=== PATIENT | male | born 1990 | race Caucasian/White ===

== ENCOUNTER 2022-09-26 08:47 | Emergency (ER) | payer SELFPAY ==
[2022-09-26 08:50] VITALS: BP 133/90; PULSE 69; RESP 16; TEMP 37.2; O2SAT 98; BMI 20.7
--- NOTE | 2022-09-26 09:01 | EXP.UTC ---
Discharge Plan Disposition Patient Disposition: Home, Self-Care Condition: Good Prescriptions Prescriptions: New amoxicillin-pot clavulanate 875-125 mg Tablet 1 tab PO Q12H Qty: 20 0RF ibuprofen [IBU] 800 mg tablet 800 mg PO TIDP PRN (Reason: Moderate Pain) Qty: 20 0RF Referrals Follow up/Referrals: Provider,Referral, MD [Primary Care Provider] - See instructions Activity Restrictions/Add. Instructions Additional Instructions/Restrictions: Make sure to follow up with Dentist Return if needed Straight to ER if any life threatening symptoms Return if needed Take medication as prescribed Clinical Impressions Clinical Impression: Abscess, dental Instructions Patient Instructions: DI for Tooth Abscess, DI for Tooth Decay, Amoxicillin and Clavulanic Acid Discharge ED Provider: Sonia Phelps [facility] General Stated complaint: Possible abcess tooth Time Seen by Provider: 09/26/22 09:01 History of Present Illness Provider Complaint: Patient states that he has several broken decaying teeth and has appointment in October to have them all removed States that last night he woke up with pain and swelling in his right upper gumline States that this morning the swelling was getting worse so he came in to get it checked Related Data Previous Rx's Medication Instructions Recorded amoxicillin 875 mg-potassium 1 tab PO Q12H #20 tabs 09/26/22 clavulanate 125 mg tablet ibuprofen 800 mg tablet (IBU) 800 mg PO TIDP PRN Moderate Pain 09/26/22 #20 tabs Allergies Allergy/AdvReac Type Severity Reaction Status Date / Time No Known Allergies Allergy Verified 09/26/22 09:08 [facility] Disclaimer: The information contained in this section may have been updated after the patient was seen, as this information can be updated by other users. Medical History (Updated 09/26/22 @ 09:08 by Sonia Phelps, [employer]) No significant past medical history Social History (Updated 09/26/22 @ 09:07 by Olamide Montesinos RN) Smoking Status: Current every day smoker alcohol intake: never current occupational status: other Travel in the last 8 weeks: None ROS Obtained: Yes All systems reviewed & no additional complaints except as documented and Yes Systems reviewed as appropriate & no additional complaints except as documented Constitutional Constitutional: Reports system reviewed and no additional complaints, except as documented and Reports as per HPI ENT Ears, Nose, Mouth, and Throat: Reports system reviewed and no additional complaints, except as documented, Reports as per HPI and Reports dental pain Cardiovascular Cardiovascular: Reports system reviewed and no additional complaints, except as documented and Reports as per HPI Respiratory Respiratory: Reports system reviewed and no additional complaints, except as documented and Reports as per HPI Gastrointestinal Gastrointestingal: Reports system reviewed and no additional complaints, except as documented and as per HPI Physical Exam General General appearance: alert and in no apparent distress Expanded ENT Exam Teeth exam: Present gingival swelling and other (several broken and decaying teeth with swelling in the gumline) Respiratory Respiratory exam: Present normal lung sounds bilaterally; Absent respiratory distress or wheezes Cardiovascular Cardiovascular exam: Present regular rate, normal rhythm and normal heart sounds Neurological Exam Neurological exam: Present alert, oriented X3 and normal gait Medical Decision Making Karlos Inquiry Pt receiving controlled substance: No Karlos was queried for this patient: No
[2022-09-26 09:13] VITALS: BP 133/90; PULSE 69; RESP 16; TEMP 37.2; O2SAT 98
== END 2022-09-26 09:15 | disposition home or self-care (01) ==
PROVIDERS: Emergency Provider Nurse Practitioner
DX: K04.7 Periapical abscess without sinus (principal)
CPT/HCPCS: 99212; 99213; G0463

== ENCOUNTER 2022-10-23 11:24 | Emergency (ER) | payer SELFPAY ==
[2022-10-23 11:25] VITALS: BP 128/90; PULSE 72; RESP 17; TEMP 36.8; O2SAT 100; BMI 23.6
--- NOTE | 2022-10-23 11:44 | HMH.EDGENADL ---
Discharge Plan Disposition Patient Disposition: Home, Self-Care Condition: Good Prescriptions Prescriptions: New amoxicillin-pot clavulanate 875-125 mg tablet 1 tab PO BID 10 Days Qty: 20 0RF No Action amoxicillin-pot clavulanate 875-125 mg Tablet 1 tab PO Q12H Qty: 20 0RF ibuprofen [IBU] 800 mg tablet 800 mg PO TIDP PRN (Reason: Moderate Pain) Qty: 20 0RF Referrals Follow up/Referrals: Provider,Referral, MD [Primary Care Provider] - See instructions Activity Restrictions/Add. Instructions Additional Instructions/Restrictions: Take antibiotic twice daily for 10 days. Follow-up with dentistry. Take Tylenol 1000 mg every 6 hours (4 times daily) and ibuprofen 400 mg every 6 hours (4 times daily) as needed with food and water to prevent GI upset and kidney damage. Clinical Impressions Clinical Impression: Abscess, dental Discharge ED Provider: Lewis Jose General Adult HPI General Chief complaint: Dental/Oral Stated complaint: right side jaw/facial pain Time Seen by Provider: 10/23/22 11:35 Mode of Arrival: Ambulatory Source of Information: Patient Limitations: No Limitations Description of Symptoms (Recalled from ER Triage Doc. by RN): PT C/O RIGHT LOWER JAW PAIN FROM A BROKEN TOOTH History of Present Illness HPI narrative: This is a 31-year-old male with history of numerous dental caries presenting with facial pain. Patient states that he began having facial pain about 2 or 3 days ago. Began having swelling on the right side of his face today and pain in his jaw. It radiates up toward his ear and his moderate in intensity. Made worse by chewing, made better by resting. Patient denies fevers, chills, throat swelling, pain with range of motion of neck, ear discharge, vomiting, fevers, chills, voice changes, or any other concerns. Related Data Previous Rx's Medication Instructions Recorded amoxicillin 875 mg-potassium 1 tab PO Q12H #20 tabs 09/26/22 clavulanate 125 mg tablet ibuprofen 800 mg tablet (IBU) 800 mg PO TIDP PRN Moderate Pain 09/26/22 #20 tabs amoxicillin 875 mg-potassium 1 tab PO BID 10 days #20 tabs 10/23/22 clavulanate 125 mg tablet Allergies Allergy/AdvReac Type Severity Reaction Status Date / Time No Known Allergies Allergy Verified 09/26/22 09:08 PFSH PFSH Disclaimer: The information contained in this section may have been updated after the patient was seen, as this information can be updated by other users. Medical History (Updated 10/23/22 @ 11:44 by Lewis Jose MD) No significant past medical history Family History (Updated 10/23/22 @ 11:35 by Mayra Khan RN) Other No significant family history Social History (Updated 10/23/22 @ 11:35 by Mayra Khan RN) Smoking Status: Current every day smoker alcohol intake: never current occupational status: other Travel in the last 8 weeks: None ROS Obtained: Yes All systems reviewed & no additional complaints except as documented Physical Exam General General appearance: alert and in no apparent distress Head Head exam: atraumatic, normocephalic and normal inspection Eye Eye exam: Present normal appearance, PERRL and EOMI ENT ENT exam: Present normal oropharynx, mucous membranes moist, TM's normal bilaterally, normal external ear exam and other (Numerous dental caries and fractured teeth. No evidence of anything amenable to drainage. No evidence of tonsillitis, exudate, pharyngeal erythema, uvular deviation, palatal swelling, dental abscess, angioedema, or other abnormal colin pharyngeal findings) Neck Neck exam: Present normal inspection, full ROM and trachea midline; Absent meningismus or lymphadenopathy Chest Chest inspection: Present normal inspection and symmetric chest wall rise; Absent tenderness Respiratory Respiratory exam: Present normal lung sounds bilaterally; Absent respiratory distress Cardiovascular Cardiovascular exam: Present regular rate and normal rhythm
[2022-10-23 11:56] VITALS: BP 128/90; PULSE 72; RESP 17; TEMP 36.8; O2SAT 100
== END 2022-10-23 11:57 | disposition home or self-care (01) ==
PROVIDERS: Emergency Provider Emergency Medicine
DX: K04.7 Periapical abscess without sinus (principal); F17.210 Nicotine dependence, cigarettes, uncomplicated
CPT/HCPCS: 96372; 99284

== ENCOUNTER 2023-01-11 18:15 | Emergency (ER) | payer SELFPAY ==
[2023-01-11 18:16] VITALS: BP 120/82; PULSE 97; RESP 18; TEMP 37.4; O2SAT 98; BMI 24.0
--- NOTE | 2023-01-11 18:42 | HMH.EDGENADL ---
Discharge Plan Disposition Patient Disposition: Home, Self-Care Prescriptions Prescriptions: New cephalexin 500 mg capsule 500 mg PO QID 10 Days Qty: 40 0RF No Action amoxicillin-pot clavulanate 875-125 mg Tablet 1 tab PO Q12H Qty: 20 0RF ibuprofen [IBU] 800 mg tablet 800 mg PO TIDP PRN (Reason: Moderate Pain) Qty: 20 0RF amoxicillin-pot clavulanate 875-125 mg tablet 1 tab PO BID 10 Days Qty: 20 0RF Clinical Impressions Clinical Impression: Insect bite of ankle with local reaction, Cellulitis and abscess of foot Discharge ED Provider: Ramirez Singer General Adult HPI General Stated complaint: Reaction to a insect sting Time Seen by Provider: 01/11/23 18:43 History of Present Illness HPI narrative: Patient is a 32-year-old male presenting with localized pain erythema and tenderness and itching after a unknown bug bite last night. He heard a buzzing slapped his foot about 12 hours later started having redness pain and had some itching took some Benadryl without any significant improvement. Related Data Previous Rx's Medication Instructions Recorded amoxicillin 875 mg-potassium 1 tab PO Q12H #20 tabs 09/26/22 clavulanate 125 mg tablet ibuprofen 800 mg tablet (IBU) 800 mg PO TIDP PRN Moderate Pain 09/26/22 #20 tabs amoxicillin 875 mg-potassium 1 tab PO BID 10 days #20 tabs 10/23/22 clavulanate 125 mg tablet cephalexin 500 mg capsule 500 mg PO QID 10 days #40 caps 01/11/23 Allergies Allergy/AdvReac Type Severity Reaction Status Date / Time No Known Allergies Allergy Verified 09/26/22 09:08 [facility] Disclaimer: The information contained in this section may have been updated after the patient was seen, as this information can be updated by other users. Medical History (Updated 01/11/23 @ 18:47 by Ramirez Singer MD) No significant past medical history Family History (Updated 10/23/22 @ 11:35 by Mayra Khan RN) Other No significant family history Social History (Updated 10/23/22 @ 11:35 by Mayra Khan RN) Smoking Status: Current every day smoker alcohol intake: never current occupational status: other Travel in the last 8 weeks: None ROS Obtained: Yes All systems reviewed & no additional complaints except as documented Physical Exam General General appearance: alert Respiratory Respiratory exam: Absent respiratory distress Cardiovascular Cardiovascular exam: Present regular rate; Absent tachycardia Extremities Exam Extremities exam: Present other (Left lower extremity and dorsal aspect of his left foot lateral aspect of his lateral malleolus extending up the dorsal aspect the mid forefoot there is some erythema and edema does phong is tender to palpation there is no ecchymosis or soft tissue fluctuance.) Neurological Exam Neurological exam: Present alert and oriented X3 Medical Decision Making Karlos Inquiry Pt receiving controlled substance: No Orders (Tests/Meds): ED MEDICATIONS Generic Name Dose Route Start Last Admin Trade Name Freq PRN Reason Stop Dose Admin Cephalexin HCl 500 mg 01/11/23 18:45 Cephalexin 500mg Capsule PO 01/11/23 18:46 ONCE ONE Dexamethasone Sodium Phosphate 10 mg 01/11/23 18:45 Dexamethasone 4mg/Ml 5ml Mdv PO 01/11/23 18:46 ONCE ONE Medical Decision Narrative: Patient is a 32-year-old male who had an insect bite or sting unclear what type of insect it was but he said he heard a buzzing so probably some type of hymenoptera sting. He has no signs or symptoms of systemic IgE mediated reaction or anaphylaxis. Patient has indistinguishable localized inflammatory response versus cellulitis that were bacteria was introduced. We will give him a dose of dexamethasone to treat the localized inflammation told him to continue taking Benadryl and prescribed Keflex. Return precautions discussed. Critical Care Time Critical Care Time Critical Care Time: No Attestation: On , the
[2023-01-11 19:07] VITALS: BP 128/91; PULSE 93; RESP 18; TEMP 37.4; O2SAT 99
== END 2023-01-11 19:07 | disposition home or self-care (01) ==
PROVIDERS: Emergency Provider Student in an Organized Health Care Education/Training Program
DX: L03.116 Cellulitis of left lower limb (principal); S90.862S Insect bite (nonvenomous), left foot, sequela; W57.XXXA Bitten or stung by nonvenomous insect and other nonvenomous arthropods, initial encounter; F17.200 Nicotine dependence, unspecified, uncomplicated
CPT/HCPCS: 99283; 99284

== ENCOUNTER 2024-03-12 18:07 | Emergency (ER) | payer SELFPAY ==
[2024-03-12 18:55] VITALS: BP 104/79; PULSE 97; RESP 20; TEMP 36.9; O2SAT 100; BMI 22.9
[2024-03-12 19:13] LABS: UTC Strep Screen (Rapid) Negative (Negative)
--- NOTE | 2024-03-12 19:20 | ED_ITS ---
Discharge Plan Disposition Patient Disposition: Home, Self-Care Condition: Good Prescriptions Prescriptions: No Action No Known Home Medications Referrals Follow up/Referrals: Provider,Referral, MD [Primary Care Provider] - See instructions Activity Restrictions/Add. Instructions Additional Instructions/Restrictions: *Monitor Temp, Over the counter Motrin or Tylenol as directed/as needed Tylenol every 4 hours and Motrin every 6 hours (as long as your family doctor has told you that you can take it) for fever or pain. and straight to ER if unable to lower temp less than 101.0 after medication given *Warm salt water gargles may help to soothe the throat *Throat Lozenges? *Warm fluids like tea with honey may help to soothe the throat? *Sleep elevated *Humidifier/Vaporizer *Your throat swab was sent for culture. Those results are typically sent to your primary care. Be sure to follow up in 2-3 days with your family doctor/primary care physician if no improvement so they can review those result and treat if necessary. If you don?t have a primary care doctor, I recommend you get one but in the mean time, you will have to return to a walk in clinic Follow up IMMEDIATELY for new or worsening symptoms or no Noticeable improvement over the next 48-72 hours. 911 for difficulty breathing or swallowing You were tested for today for COVID19 your test result should be back in the next few ?hours, you may check your results on the [facility] Portal Clinical Impressions Clinical Impression: Viral syndrome Stand Alone Forms Stand Alone Forms: Work/School Release Instructions Patient Instructions: DI for Viral Syndrome Print Language Print Language: Faroese Discharge ED Provider: Sonia Phelps [facility] HPI General Stated complaint: No taste,head congestion,VO,body aches,Sore throat Mode of Arrival: Ambulatory Source of Information: Patient Limitations: No Limitations Time Seen by Provider: 03/12/24 19:20 Description of Symptoms (Recalled from Triage Doc. by RN): PATIENT C/O BODY ACHES, SORE THROAT, AND NO TASTE SINCE LAST NIGHT HEENT Symptoms (Recalled from RN notes): Yes Resp Symptoms (Recalled from RN notes): No Skin Symptoms (Recalled from RN notes): No MS Symptoms (Recalled from RN notes): No Functional Status (Recalled from RN notes): WNL History of Present Illness Provider Complaint: Patient states that strep throat and COVID is going around at work States that he has been having sore throat, loss of taste and smell and feeling achy since last night symptoms like he had last time he had COVID so he came in Related Data Home Medications ?Medication ?Instructions ?Recorded ?Confirmed No Known Home Medications 03/12/24 03/12/24 Allergies Allergy/AdvReac Type Severity Reaction Status Date / Time No Known Allergies Allergy Verified 09/26/22 09:08 Worker's Comp Is this a Worker's Comp case?: No [facility] Disclaimer: The information contained in this section may have been updated after the patient was seen, as this information can be updated by other users. Medical History (Updated 03/12/24 @ 19:26 by Sonia Phelps APRN) No significant past medical history Surgical History (Updated 03/12/24 @ 19:09 by Olamide Montesinos RN) History of tonsillectomy Family History (Updated 10/23/22 @ 11:35 by Mayra Khan RN) Other No significant family history Social History (Updated 10/23/22 @ 11:35 by Mayra Khan RN) Smoking Status: Current every day smoker alcohol intake: never current occupational status: other Travel in the last 8 weeks: None ROS Obtained: Yes All systems reviewed & no additional complaints except as documented Constitutional Constitutional: Reports system reviewed and no additional complaints, except as documented, Reports as per HPI, Reports body ache, Reports chills and Reports fever(s) ENT Ears, Nose, Mouth, and Throat: Reports system reviewed and no additional complaints, except as documented, Reports as per HPI and Reports sore throat Cardiovascular Cardiovascular: Reports system reviewed and no additional complaints, except as documented and Reports as per HPI Respiratory Respiratory: Reports system reviewed and no additional complaints, except as documented and Reports as per HPI Gastrointestinal Gastrointestingal: Reports system reviewed and no additional complaints, except as documented and as per HPI Musculoskeletal Musculoskeletal: Reports system reviewed and no additional complaints, except as documented and Reports as per HPI Physical Exam General General appearance: alert and in no apparent distress ENT ENT exam: Present mucous membranes moist Expanded ENT Exam Throat exam: Present tonsillar erythema; Absent tonsillar exudate Respiratory Respiratory exam: Present normal lung sounds bilaterally; Absent respiratory distress or wheezes Cardiovascular Cardiovascular exam: Present regular rate, normal rhythm and normal heart sounds Abdominal Exam Abdominal exam: Present soft and normal bowel sounds; Absent distention or tenderness Neurological Exam Neurological exam: Present alert, oriented X3 and normal gait Medical Decision Making Karlos Inquiry Pt receiving controlled substance: No Karlos was queried for this patient: No Vital Signs: 03/12/24 18:55 Temperature 98.5 F Temperature Source Oral Pulse Rate [Left Brachial] 97 H Respiratory Rate 20 Blood Pressure [Left Arm] 104/79 L Blood Pressure Mean [Left Arm] 87 Blood Pressure Source [Left Arm] Automatic Cuff Blood Pressure Position [Left Arm] Sitting 02 Sat by Pulse Oximetry 100 Oxygen Delivery Method Room Air Lab Data Lab results reviewed: Yes I reviewed the patient's lab results. Lab Results 03/12/24 19:03: Strep Scn [facility] Negative
[2024-03-12 19:25] VITALS: BP 104/79; PULSE 97; RESP 20; TEMP 36.9; O2SAT 100
[2024-03-13 11:04] LABS: Coronavirus 19, PCR Not Detected (NotDetected); Influenza A, PCR Not Detected (NotDetected); Influenza B, PCR Not Detected (NotDetected)
== END 2024-03-12 19:27 | disposition home or self-care (01) ==
PROVIDERS: Emergency Provider Nurse Practitioner
DX: R07.0 Pain in throat (principal); R43.9 Unspecified disturbances of smell and taste; B34.9 Viral infection, unspecified
CPT/HCPCS: 87636; 87880; 99212; 99213; G0463

== ENCOUNTER 2024-05-23 18:03 | Emergency (ER) | payer SELFPAY ==
[2024-05-23 18:15] VITALS: BP 116/78; PULSE 91; RESP 16; TEMP 36.9; O2SAT 99; BMI 24.3
--- NOTE | 2024-05-23 18:24 | ED_ITS ---
Discharge Plan Disposition Patient Disposition: Home, Self-Care Condition: Good Prescriptions Prescriptions: New amoxicillin 875 mg tablet 875 mg PO Q12H Qty: 20 0RF Referrals Follow up/Referrals: Provider,Referral, MD [Primary Care Provider] - See instructions Activity Restrictions/Add. Instructions Additional Instructions/Restrictions: Drink plenty of fluids. Take tylenol or ibuprofen for pain or fever. Take the medications as directed. Follow up with your regular doctor. GO TO THE ER FOR ANY WORSENING SYMPTOMS Clinical Impressions Clinical Impression: Strep throat Stand Alone Forms Stand Alone Forms: Work/School Release Instructions Patient Instructions: Strep Throat, DI for Strep Throat Print Language Print Language: Korean Discharge ED Provider: Maldonado Haas [facility] HPI General Stated complaint: sore throat, VO Mode of Arrival: Ambulatory Source of Information: Patient Limitations: No Limitations Time Seen by Provider: 05/23/24 18:24 Description of Symptoms (Recalled from Triage Doc. by RN): Reports possible strep throat. HEENT Symptoms (Recalled from RN notes): Yes Resp Symptoms (Recalled from RN notes): No Skin Symptoms (Recalled from RN notes): No MS Symptoms (Recalled from RN notes): No Functional Status (Recalled from RN notes): wnl Related Data Previous Rx's ?Medication ?Instructions ?Recorded amoxicillin 875 mg tablet 875 mg PO Q12H #20 tabs 05/23/24 Allergies Allergy/AdvReac Type Severity Reaction Status Date / Time No Known Allergies Allergy Verified 09/26/22 09:08 Worker's Comp Is this a Worker's Comp case?: No [facility] Disclaimer: The information contained in this section may have been updated after the patient was seen, as this information can be updated by other users. Medical History (Updated 05/23/24 @ 18:39 by Maldonado Haas APRN) No significant past medical history Surgical History (Updated 03/12/24 @ 19:09 by Olamide Montesinos RN) History of tonsillectomy Family History (Updated 10/23/22 @ 11:35 by Mayra Khan RN) Other No significant family history Social History (Updated 10/23/22 @ 11:35 by Mayra Khan RN) Smoking Status: Current every day smoker alcohol intake: never current occupational status: other Travel in the last 8 weeks: None ROS Obtained: Yes All systems reviewed & no additional complaints except as documented Constitutional Constitutional: Reports chills and Reports fever(s) Eyes Eyes: Denies eye discharge ENT Ears, Nose, Mouth, and Throat: Reports as per HPI Cardiovascular Cardiovascular: Denies chest pain Respiratory Respiratory: Denies chest congestion and Reports cough Gastrointestinal Gastrointestingal: Reports nausea; Denies abdominal pain, constipation, c ramping, diarrhea or vomiting Musculoskeletal Musculoskeletal: Denies arthralgias Integumentary/Breasts Skin/Breast: Denies rash Neurologic Neurologic: Denies paresthesias Physical Exam General General appearance: alert and in no apparent distress Head Head exam: atraumatic, normocephalic and normal inspection Eye Eye exam: Present normal appearance, PERRL and EOMI ENT ENT exam: Present mucous membranes moist and normal external ear exam Expanded ENT Exam TM/Canal exam: Bilateral TM: erythema and bulging Nose exam: Absent sinus tenderness Mouth exam: Present normal external inspection; Absent drooling Teeth exam: Present normal inspection Throat exam: Present tonsillar erythema, tonsillomegaly and tonsillar exudate Neck Neck exam: Present normal inspection, full ROM and trachea midline; Absent tenderness, meningismus or lymphadenopathy Chest Chest inspection: Present normal inspection and symmetric chest wall rise; Absent tenderness Respiratory Respiratory exam: Present normal lung sounds bilaterally; Absent respiratory distress, wheezes, stridor or accessory muscle use Cardiovascular Cardiovascular exam: Present regular rate and normal rhythm; Absent systolic murmur or diastolic murmur Abdominal Exam Abdominal exam: Present soft and normal bowel sounds; Absent distention, tenderness, guarding, rebound or rigidity Extremities Exam Extremities exam: Present normal inspection and normal capillary refill; Absent calf tenderness Back Exam Back exam: Present normal inspection and full ROM; Absent tenderness, CVA tenderness (R) or CVA tenderness (L) Neurological Exam Neurological exam: Present alert, oriented X3 and CN II-XII intact Psychiatric Psychiatric exam: Present normal affect and normal mood Skin Skin exam: Present warm, dry, intact and normal color Medical Decision Making Medical Records Medical records reviewed: No I reviewed the patient's medical records. Screening: Per USPSTF and CDC recommendations, given the prevalence of disease in our region, it is our hospital?s policy to screen for HIV and viral Hepatitis for all patients aged 18 and over and those with ongoing risk factors. Karlos Inquiry Pt receiving controlled substance: No Vital Signs: 05/23/24 18:15 Temperature 98.4 F Temperature Source Oral Pulse Rate [Radial] 91 H Respiratory Rate 16 Blood Pressure [Right Arm] 116/78 Blood Pressure Mean [Right Arm] 90 Blood Pressure Source [Right Arm] Automatic Cuff Blood Pressure Position [Right Arm] Sitting 02 Sat by Pulse Oximetry 99 Oxygen Delivery Method Room Air Lab Data Lab results reviewed: Yes I reviewed the patient's lab results.
[2024-05-23 18:25] LABS: UTC Strep Screen (Rapid) Positive (Negative)
[2024-05-23] MEDS: AMOXICILLIN 500MG CAPSULE 500 MG PO (18:45)
[2024-05-23 18:49] VITALS: BP 116/78; PULSE 91; RESP 16; TEMP 36.9; O2SAT 99
== END 2024-05-23 18:49 | disposition home or self-care (01) ==
PROVIDERS: Emergency Provider Nurse Practitioner Family
DX: J02.0 Streptococcal pharyngitis (principal); J02.9 Acute pharyngitis, unspecified; R51.9 Headache, unspecified; R05.9 Cough, unspecified; R11.0 Nausea
CPT/HCPCS: 87880; 99212; G0381

== ENCOUNTER 2024-05-27 17:56 | Emergency (ER) | payer SELFPAY ==
[2024-05-27 18:00] VITALS: BP 135/79; PULSE 94; RESP 20; TEMP 37.2; O2SAT 97; BMI 23.8
--- NOTE | 2024-05-27 18:06 | ED_ITS ---
Discharge Plan Disposition Patient Disposition: Home, Self-Care Condition: Good Prescriptions Prescriptions: New prednisone 10 mg tablet 10 mg PO DIRECTED 9 Days Qty: 21 0RF Rx Instructions: Take 4 tablets daily for 2 days, then take 2 tablets daily for 2 days, then take 1 tablet daily for 2 days, then stop. cefdinir 300 mg capsule 300 mg PO BID Qty: 20 0RF Discontinued amoxicillin 875 mg tablet 875 mg PO Q12H Qty: 20 0RF Referrals Follow up/Referrals: Provider,Referral, MD [Primary Care Provider] - See instructions Activity Restrictions/Add. Instructions Additional Instructions/Restrictions: Drink plenty of fluids. Take tylenol or ibuprofen for pain or fever. Stop the amoxicillin and start the cefdinir and prednisone as directed. Follow up with your regular doctor. GO TO THE ER FOR ANY WORSENING SYMPTOMS Clinical Impressions Clinical Impression: Strep throat Stand Alone Forms Stand Alone Forms: Work/School Release Instructions Patient Instructions: Strep Throat, DI for Strep Throat Print Language Print Language: Portuguese Discharge ED Provider: Maldonado Haas [facility] General Stated complaint: sore throat Time Seen by Provider: 05/27/24 18:06 History of Present Illness Provider Complaint: He is back today after being diagnosed with strep throat 3 days ago. He states that he has been taking the amoxicillin as directed, but his symptoms have not improved at all. He denies chest congestion. Related Data Previous Rx's ?Medication ?Instructions ?Recorded cefdinir 300 mg capsule 300 mg PO BID #20 caps 05/27/24 prednisone 10 mg tablet 10 mg PO DIRECTED 9 days #21 05/27/24 tabs Allergies Allergy/AdvReac Type Severity Reaction Status Date / Time No Known Allergies Allergy Verified 09/26/22 09:08 [facility] Disclaimer: The information contained in this section may have been updated after the patient was seen, as this information can be updated by other users. Medical History (Updated 05/27/24 @ 18:16 by Maldonado Haas APRN) No significant past medical history Surgical History (Updated 03/12/24 @ 19:09 by Olamide Montesinos RN) History of tonsillectomy Family History (Updated 10/23/22 @ 11:35 by Mayra Khan RN) Other No significant family history Social History (Updated 10/23/22 @ 11:35 by Mayra Khan RN) Smoking Status: Current every day smoker alcohol intake: never current occupational status: other Travel in the last 8 weeks: None ROS Obtained: Yes All systems reviewed & no additional complaints except as documented Constitutional Constitutional: Reports chills and Reports fever(s) Eyes Eyes: Denies eye discharge ENT Ears, Nose, Mouth, and Throat: Reports as per HPI Cardiovascular Cardiovascular: Denies chest pain Respiratory Respiratory: Denies chest congestion and Reports cough Gastrointestinal Gastrointestingal: Reports nausea; Denies abdominal pain, constipation, cramping, diarrhea or vomiting Musculoskeletal Musculoskeletal: Denies arthralgias Integumentary/Breasts Skin/Breast: Denies rash Neurologic Neurologic: Denies paresthesias Physical Exam General General appearance: alert and in no apparent distress Head Head exam: atraumatic, normocephalic and normal inspection Eye Eye exam: Present normal appearance, PERRL and EOMI ENT ENT exam: Present mucous membranes moist and normal external ear exam Expanded ENT Exam TM/Canal exam: Bilateral TM: erythema and bulging Nose exam: Absent sinus tenderness Mouth exam: Present normal external inspection; Absent drooling Teeth exam: Present normal inspection Throat exam: Present tonsillar erythema, tonsillomegaly and tonsillar exudate Neck Neck exam: Present normal inspection, full ROM and trachea midline; Absent tenderness, meningismus or lymphadenopathy Chest Chest inspection: Present normal inspection and symmetric chest wall rise; Absent tenderness Respiratory Respiratory exam: Present normal lung sounds bilaterally; Absent respiratory distress, wheezes, stridor or accessory muscle use Cardiovascular Cardiovascular exam: Present regular rate and normal rhythm; Absent systolic murmur or diastolic murmur Abdominal Exam Abdominal exam: Present soft and normal bowel sounds; Absent distention, tenderness, guarding, rebound or rigidity Extremities Exam Extremities exam: Present normal inspection and normal capillary refill; Absent calf tenderness Back Exam Back exam: Present normal inspection and full ROM; Absent tenderness, CVA tenderness (R) or CVA tenderness (L) Neurological Exam Neurological exam: Present alert, oriented X3 and CN II-XII intact Psychiatric Psychiatric exam: Present normal affect and normal mood Skin Skin exam: Present warm, dry, intact and normal color Medical Decision Making Medical Records Medical records reviewed: No I reviewed the patient's medical records. Screening: Per USPSTF and CDC recommendations, given the prevalence of disease in our region, it is our hospital?s policy to screen for HIV and viral Hepatitis for all patients aged 18 and over and those with ongoing risk factors. Karlos Inquiry Pt receiving controlled substance: No
[2024-05-27 18:18] VITALS: BP 135/79; PULSE 94; RESP 20; TEMP 37.2; O2SAT 97
== END 2024-05-27 18:21 | disposition home or self-care (01) ==
PROVIDERS: Emergency Provider Nurse Practitioner Family
DX: J02.0 Streptococcal pharyngitis (principal); J02.9 Acute pharyngitis, unspecified; R05.9 Cough, unspecified
CPT/HCPCS: 99212; G0381

== ENCOUNTER 2024-05-31 12:24 | Emergency (ER) | payer SELFPAY ==
[2024-05-31 13:23] VITALS: BP 119/62; PULSE 50; RESP 20; TEMP 37.1; O2SAT 97; BMI 23.8
--- NOTE | 2024-05-31 13:28 | EXP.UTC ---
Discharge Plan Disposition Patient Disposition: Home, Self-Care Condition: Good Prescriptions Prescriptions: No Action prednisone 10 mg tablet 10 mg PO DIRECTED 9 Days Qty: 21 0RF Rx Instructions: Take 4 tablets daily for 2 days, then take 2 tablets daily for 2 days, then take 1 tablet daily for 2 days, then stop. cefdinir 300 mg capsule 300 mg PO BID Qty: 20 0RF Referrals Follow up/Referrals: Provider,Referral, MD [Primary Care Provider] - See instructions Activity Restrictions/Add. Instructions Additional Instructions/Restrictions: Drink plenty of fluids. stop the oral steroids (prednisone) that you are on. Continue the antibiotics that you are already on. Follow up with your regular doctor. GO TO THE ER FOR ANY WORSENING SYMPTOMS Clinical Impressions Clinical Impression: Pharyngitis Stand Alone Forms Stand Alone Forms: Work/School Release Instructions Patient Instructions: DI for Pharyngitis/Tonsillopharyngitis -- Adult, Dexamethasone Injection Print Language Print Language: Occitan Discharge ED Provider: Maldonado Haas [facility] General Stated complaint: sore throat Mode of Arrival: Ambulatory Source of Information: Patient Time Seen by Provider: 05/31/24 13:27 Description of Symptoms (Recalled from Triage Doc. by RN): DX'ED ON MONDAY WITH STREP THROAT AND STATES WAS TOLD TO COME BACK IF NOT BETTER. IS HAVING CHILLS, SORE THROAT, RUNNY NOSE AND COUGH HEENT Symptoms (Recalled from RN notes): Yes Resp Symptoms (Recalled from RN notes): Yes Skin Symptoms (Recalled from RN notes): No MS Symptoms (Recalled from RN notes): No Functional Status (Recalled from RN notes): WNL Related Data Previous Rx's ?Medication ?Instructions ?Recorded cefdinir 300 mg capsule 300 mg PO BID #20 caps 05/27/24 prednisone 10 mg tablet 10 mg PO DIRECTED 9 days #21 05/27/24 tabs Allergies Allergy/AdvReac Type Severity Reaction Status Date / Time No Known Allergies Allergy Verified 09/26/22 09:08 Worker's Comp Is this a Worker's Comp case?: No [facility] Disclaimer: The information contained in this section may have been updated after the patient was seen, as this information can be updated by other users. Medical History (Updated 05/31/24 @ 13:39 by Maldonado Haas APRN) No significant past medical history Surgical History (Updated 03/12/24 @ 19:09 by Olamide Montesinos RN) History of tonsillectomy Family History (Updated 10/23/22 @ 11:35 by Mayra Khan RN) Other No significant family history Social History (Updated 10/23/22 @ 11:35 by Mayra Khan RN) Smoking Status: Current every day smoker alcohol intake: never current occupational status: other Travel in the last 8 weeks: None ROS Obtained: Yes All systems reviewed & no additional complaints except as documented Constitutional Constitutional: Reports chills and Reports fever(s) Eyes Eyes: Denies eye discharge ENT Ears, Nose, Mouth, and Throat: Reports as per HPI Cardiovascular Cardiovascular: Denies chest pain Respiratory Respiratory: Denies chest congestion and Reports cough Gastrointestinal Gastrointestingal: Reports nausea; Denies abdominal pain, constipation, cramping, diarrhea or vomiting Musculoskeletal Musculoskeletal: Denies arthralgias Integumentary/Breasts Skin/Breast: Denies rash Neurologic Neurologic: Denies paresthesias Physical Exam General General appearance: alert and in no apparent distress Head Head exam: atraumatic, normocephalic and normal inspection Eye Eye exam: Present normal appearance, PERRL and EOMI ENT ENT exam: Present mucous membranes moist and normal external ear exam Expanded ENT Exam TM/Canal exam: Bilateral TM: erythema and bulging Nose exam: Absent sinus tenderness Mouth exam: Present normal external inspection; Absent drooling Teeth exam: Present normal inspection Throat exam: Present tonsillar erythema, tonsillomegaly and tonsillar exudate Neck Neck exam: Present normal inspection, full ROM and trachea midline; Absent tenderness, meningismus or lymphadenopathy Chest Chest inspection: Present normal inspection and symmetric chest wall rise; Absent tenderness Respiratory Respiratory exam: Present normal lung sounds bilaterally; Absent respiratory distress, wheezes, stridor or accessory muscle use Cardiovascular Cardiovascular exam: Present regular rate and normal rhythm; Absent systolic murmur or diastolic murmur Abdominal Exam Abdominal exam: Present soft and normal bowel sounds; Absent distention, tenderness, guarding, rebound or rigidity Extremities Exam Extremities exam: Present normal inspection and normal capillary refill; Absent calf tenderness Back Exam Back exam: Present normal inspection and full ROM; Absent tenderness, CVA tenderness (R) or CVA tenderness (L) Neurological Exam Neurological exam: Present alert, oriented X3 and CN II-XII intact Psychiatric Psychiatric exam: Present normal affect and normal mood Skin Skin exam: Present warm, dry, intact and normal color Medical Decision Making Medical Records Medical records reviewed: No I reviewed the patient's medical records. Screening: Per USPSTF and CDC recommendations, given the prevalence of disease in our region, it is our hospital?s policy to screen for HIV and viral Hepatitis for all patients aged 18 and over and those with ongoing risk factors. Karlos Inquiry Pt receiving controlled substance: No Vital Signs: 05/31/24 13:23 Temperature 98.8 F Temperature Source Oral Pulse Rate [Left Brachial] 50 L Respiratory Rate 20 Blood Pressure [Left Arm] 119/62 Blood Pressure Mean [Left Arm] 81 02 Sat by Pulse Oximetry 97 Lab Data Lab results reviewed: Yes I reviewed the patient's lab results.
[2024-05-31] MEDS: DEXAMETHASONE 4MG/ML 1ML VIAL 8 MG IM (13:42)
[2024-05-31 14:05] VITALS: BP 119/62; PULSE 50; RESP 20; TEMP 37.1
== END 2024-05-31 14:06 | disposition home or self-care (01) ==
PROVIDERS: Emergency Provider Nurse Practitioner Family
DX: J02.9 Acute pharyngitis, unspecified (principal)
CPT/HCPCS: 96372; 99212; 99213; G0381; J1100